=== PATIENT | female | born 1930 | race Caucasian/White ===

== ENCOUNTER → 2017-05-09 | Outpatient (CLI) | payer MEDICARE, OTHER ==
[~2017-05-09] MED LIST: ABAC300; ACET500; AEROECLIPSE II1 EACH MC; ASPI81EC PO; ATOR10 PO; ATORVASTATIN CA10 MG PO; Acyclovir800 MG PO; Bacid1 EACH PO; Bactrim Ds Tab1 EACH PO; CALC.25 PO; CEFU500; CEPH500 PO; CHOL10002 PO; CIPR500 PO; CYAN1000; CYAN1000 PO; CYAN500 PO; CYCL10 PO; Cipro500 MG PO; Coumadin1 MG PO; DIPH50 PO; DOCU100 PO; DULO30 PO; EPIN.3I IM; ERGO400 PO; FAMO20 PO; GABA300 PO; GAZYVA1000 MG/40; Hair, Skin & N1 EACH PO; LAVAP17G PO; LEVFLO250 PO; LEVO750 PO; LIDO5TP TOP; LOPE2C PO; Lamisil125 ML; MAGOXI400 PO; METO50 PO; METRIBP PO; MULVITMIND; Macrobid 100 M100 MG PO; Neurontin300 MG PO; OLME20 PO; OXYACE5T PO; OXYC15ER PO; OXYC5 PO; OXYCODONE; PANT40 PO; PRED20 PO; PRESERVISION A1 EACH PO; Prednisone20 MG PO; Pyridium200 MG PO; SENN187 PO; SULTRIDS PO; VALA500; VENL75ER PO; VIT1CAPS12; Ventolin Soln3 ML INH; WARF1 PO; WARF4; WARF4 PO; XARELTO20 MG PO
== END | disposition home or self-care (01) ==
LOC: LAB SHORT 07:18 → PLD 07:18
DX: D48.5 Neoplasm of uncertain behavior of skin (principal)
CPT/HCPCS: 88305